=== PATIENT | female | born 1980 | race Asian ===

== ENCOUNTER 2016-08-28 08:32 | Inpatient (IN) | payer OTHER ==
[~2016-08-28] VITALS: Ht 157.5 cm; Wt 59.9 kg
[2016-08-28] MEDS ORDERED: FERROUS SULFAT325 M1 PO (09:20)
[2016-08-28] MEDS ORDERED: PRENATAL LOW IR1 TA1 PO (09:20)
[2016-08-28] MEDS ORDERED: LACTATED RINGERS 1,000 ML IV SCH (09:21)
[2016-08-28] MEDS ORDERED: METHYLERGONOVINE 0.2 MG/ML AMP IM PRN ×2 (09:25→13:40)
[2016-08-28] MEDS ORDERED: AMPICILLIN 2,000 MG in NACL 0.9% MINI-BAG PLUS 100 ML IV SCH (09:25)
[2016-08-28] MEDS ORDERED: OXYTOCIN 10 UNITS/ML VIAL IM SCH (09:25)
[2016-08-28] MEDS ORDERED: CARBOPROST 250 MCG/ML AMP IM PRN (09:25)
[2016-08-28] MEDS ORDERED: AMPICILLIN 2,000 MG VIAL ONE (09:47)
[2016-08-28] MEDS ORDERED: MISOPROSTOL 25 MCG TAB ONE (09:47)
[2016-08-28] MEDS ORDERED: OXYTOCIN 20 UNITS/LR PREMIX 1,000 ML IV SCH (10:00)
[2016-08-28] MEDS ORDERED: PROMETHAZINE 25 MG/ML VIAL ONE (11:14)
[2016-08-28] MEDS ORDERED: NALBUPHINE HYDROCHLORIDE 10 MG/ML VIAL ONE (11:14)
[2016-08-28] MEDS ORDERED: NALBUPHINE 10 MG/ML AMP IVP PRN (11:20)
[2016-08-28] MEDS ORDERED: MISOPROSTOL 25 MCG TAB VG SCH (12:00)
[2016-08-28] MEDS ORDERED: AMPICILLIN 1,000 MG in NACL 0.9% MINI-BAG PLUS 50 ML IV SCH (12:00)
[2016-08-28] MEDS ORDERED: LIDOCAINE 1% 500 MG/50 ML VIAL INJ SCH (12:15)
[2016-08-28] MEDS ORDERED: OXYTOCIN 20 UNITS/LR PREMIX 1,000 ML IV ONE (12:21)
[2016-08-28] MEDS ORDERED: LIDOCAINE 1% 50 ML ONE (12:22)
[2016-08-28] MEDS ORDERED: NALOXONE 0.4 MG/ML VIAL ONE (12:57)
[2016-08-28] MEDS ORDERED: METHYLERGONOVINE 0.2 MG/ML AMP ONE (13:29)
[2016-08-28] MEDS ORDERED: oxyCODONE/APAP 5/325 MG 1 TAB TAB PO PRN (13:40)
[2016-08-28] MEDS ORDERED: OXYTOCIN 10 UNITS/ML VIAL IM PRN (13:40)
[2016-08-28] MEDS ORDERED: TEMAZEPAM 15 MG CAP PO PRN (13:40)
[2016-08-28] MEDS ORDERED: BENZOCAINE/MENTHOL 20%-0.5% 60 GM CAN TP PRN (13:40)
[2016-08-28] MEDS ORDERED: IBUPROFEN 800 MG TAB PO PRN (13:40)
[2016-08-28] MEDS ORDERED: MEASLES, MUMPS, AND RUBELLA 1 VIAL SQVAC PRN (13:40)
[2016-08-28] MEDS ORDERED: oxyCODONE/APAP 5/325 MG 1 TAB TAB ONE (18:51)
[2016-08-28] MEDS ORDERED: DOCUSATE SOD/SENNA 50/8.6 MG 1 TAB PO SCH (21:00)
[2016-08-29] MEDS: HYDROcodone/APAP 5/325 MG 1 TAB TAB PO PRN ×2 (03:38→20:41)
[2016-08-30] MEDS: HYDROcodone/APAP 5/325 MG 1 TAB TAB PO PRN (02:55)
--- NOTE | 2016-08-30 10:30 | NUR ---
PATIENT HAS BEEN SCREENED AND CATEGORIZED LOW NUTRITION RISK. PATIENT WILL BE SEEN WITHIN 7 DAYS OF ADMISSION. 09/04/[address]
== END 2016-08-30 11:00 | disposition home or self-care (01) | DRG 775 ==
LOC: EDBD 08:32 → MLD 08:32 → MFCC 15:24
PROVIDERS: ADMIT Obstetrics & Gynecology; ATTEND Obstetrics & Gynecology
PROC: 10E0XZZ Delivery of Products of Conception, External Approach (ICD-10-PCS; principal; 2016-08-28)
PROC: 3E0P7GC Introduction of Other Therapeutic Substance into Female Reproductive, Via Natural or Artificial Opening (ICD-10-PCS; 2016-08-28)
PROC: 0HQ9XZZ Repair Perineum Skin, External Approach (ICD-10-PCS; 2016-08-28)
PROC: 3E0234Z Introduction of Serum, Toxoid and Vaccine into Muscle, Percutaneous Approach (ICD-10-PCS; 2016-08-28)
DX: O70.0 First degree perineal laceration during delivery (principal); Z3A.39 39 weeks gestation of pregnancy; Z37.0 Single live birth; O09.523 Supervision of elderly multigravida, third trimester; Z23 Encounter for immunization; Z98.890 Other specified postprocedural states; Z82.49 Family history of ischemic heart disease and other diseases of the circulatory system